=== PATIENT | female | born 1990 | race Caucasian/White ===

== ENCOUNTER → 2022-04-04 | Outpatient (CLI) | payer OTHER ==
[~2022-04-04] MED LIST: COLACE 100MG C100 MG PO; HYDROCODON-ACE1 EAC2 PO; IBUPROFEN600 MG PO; IBUPROFEN800 MG PO; LORTAB 5-325 M1 EACH PO
[2022-04-04 15:21] LABS: HEMOGLOBIN 11.2 gm/dl (12.3-15.3); RED BLOOD COUNT 4.2 M/UL (4.00-5.10); WHITE BLOOD COUNT 10.8 K/UL (4.5-11.0)
[2022-04-04 15:33] LABS: BUN/CREATININE RATIO 11 (0-10)
== END ==
LOC: GENOP 14:10
PROVIDERS: Obstetrics & Gynecology
DX: Z01.812 Encounter for preprocedural laboratory examination (principal)
CPT/HCPCS: 80053; 81001; 85025

== ENCOUNTER 2022-04-05 09:00 | Inpatient (IN) | payer OTHER ==
[~2022-04-05] VITALS: Ht 157.5 cm; Wt 78.9 kg
[~2022-04-05 09:00] MED LIST changes: -HYDROCODON-ACE1 EAC2 PO; -IBUPROFEN800 MG PO
[2022-04-05] MEDS ORDERED: COLACE 100MG C100 MG PO (10:18)
[2022-04-05] MEDS ORDERED: IBUPROFEN800 MG PO (10:18)
[2022-04-05] MEDS ORDERED: HYDROCODON-ACE1 EAC2 PO (10:18)
[2022-04-06 08:43] LABS: HEMOGLOBIN 10.3 gm/dl (12.3-15.3)
== END 2022-04-06 17:12 | disposition home or self-care (01) | DRG 788 ==
LOC: OB 09:00
PROVIDERS: ADMIT Obstetrics & Gynecology
PROC: 10D00Z1 Extraction of Products of Conception, Low, Open Approach (ICD-10-PCS; principal; 2022-04-05 09:15)
DX: O24.420 Gestational diabetes mellitus in childbirth, diet controlled (principal); O34.211 Maternal care for low transverse scar from previous cesarean delivery; Z37.0 Single live birth; Z3A.39 39 weeks gestation of pregnancy; Z91.048 Other nonmedicinal substance allergy status; Z28.310 Unvaccinated for COVID-19; Z80.41 Family history of malignant neoplasm of ovary; Z88.0 Allergy status to penicillin; O77.0 Labor and delivery complicated by meconium in amniotic fluid
CPT/HCPCS: 36415; 82800; 82962; 85014; 85018; 93005; C9113; J1200; J1580; J1885; J2250; J2274; J2370; J2405; J2590; J3010